=== PATIENT | female | born 1960 | race Caucasian/White ===

== ENCOUNTER 2021-10-29 09:02 | Inpatient (IN) | payer OTHER, SELFPAY ==
[2021-10-29] MEDS ORDERED: Lorazepam 2 MG/ML VIAL ONE (09:27)
[2021-10-29 09:38] LABS: #Eosinphils 0.2 10x3/uL (0.0-0.5); #Monocytes 0.5 10x3/uL (0.0-1.1); #Neutrophils 5.6 10x3/uL (1.5-8.4); %Basophils 0.3 % (0.0-2.0); %Eosinophils 2.7 % (0.0-6.0); %Lymphocytes 11.9 % (18.0-47.0); %Monocytes 7.1 % (0.0-10.0); %Neutrophils 77.6 % (40.0-75.0); Hemoglobin 14.4 g/dL (12.0-15.5); Mean Corpuscular HGB CONC 31.7 g/dL (32.0-36.0); Mean Corpuscular Hemoglobin 25.6 pg (27.0-33.0); Mean Corpuscular Volume 80.6 fl (81.6-98.3); Mean Platelet Volume 9.4 fl (7.4-10.4); Platelet Count 210 10x3/uL (150-450); RBC Distribution Width 15.6 % (11.5-14.5); Red Blood Cell (RBC) Count 5.63 10x6/uL (3.90-5.03); White Blood Cell (WBC) Count 7.2 10x3/uL (3.5-10.5)
[2021-10-29 09:54] LABS: ALT (SGPT) 16 U/L (8-55); AST (SGOT) 21 U/L (5-34); Albumin 4.2 g/dL (3.4-4.8); Alkaline Phosphatase 114 U/L (40-110); Anion Gap 11 mmol/L (10-20); BUN (Urea Nitrogen) 15 mg/dL (9.8-20.1); Bilirubin, Total 0.7 mg/dL (0.2-1.2); Calc. Creatinine Clearance 0 mL/min (70-130); Calcium 9.2 mg/dL (7.8-10.44); Carbon Dioxide 27 mmol/L (23-31); Chloride 106 mmol/L (98-107); Globulin 3.5 g/dL (2.4-3.5); Glucose 101 mg/dL (80-115); Potassium 4.2 mmol/L (3.5-5.1); Protein, Total 7.7 g/dL (5.8-8.1); Sodium 140 mmol/L (136-145)
[2021-10-29] MEDS ORDERED: Acetaminophen 650 MG Suppository PR PRN (11:27)
[2021-10-29] MEDS ORDERED: Acetaminophen 325 MG TAB PO PRN (11:27)
[2021-10-29] MEDS ORDERED: Enoxaparin Sodium 60 MG/0.6 ML SYRINGE ONE (12:33)
[2021-10-29] MEDS ORDERED: Enoxaparin Sodium 30 MG/0.3 ML SYRINGE ONE (12:33)
[2021-10-29 12:34] LABS: SARS-CoV-2 NAA Rapid Test DETECTED (NotDetected)
[2021-10-29 15:09] LABS: CKMB 1.9 ng/mL (0-6.6)
[2021-10-29] MEDS ORDERED: FLU VACC QS2021-22(6MOS UP)/PF 60 MCG/0.5 ML SYRINGE IM ONE (15:30)
[2021-10-29] MEDS ORDERED: Sodium Chloride 0.65% Nasal 44 ML BOT EA NARE PRN (17:41)
[2021-10-29] MEDS ORDERED: Oxymetazoline HCl 0.05% ( 15 ML ) NASAL PRN (20:11)
[2021-10-29] MEDS: Enoxaparin Sodium 100 MG/ML SYRINGE SC SCH (23:12)
[2021-10-30 05:00] LABS: #Eosinphils 0.3 10x3/uL (0.0-0.5); #Monocytes 0.6 10x3/uL (0.0-1.1); #Neutrophils 2.1 10x3/uL (1.5-8.4); %Basophils 0.5 % (0.0-2.0); %Eosinophils 7.1 % (0.0-6.0); %Monocytes 13.4 % (0.0-10.0); %Neutrophils 48.5 % (40.0-75.0); Hemoglobin 12.9 g/dL (12.0-15.5); Mean Corpuscular HGB CONC 31.3 g/dL (32.0-36.0); Mean Corpuscular Hemoglobin 25.4 pg (27.0-33.0); Mean Corpuscular Volume 81.1 fl (81.6-98.3); Platelet Count 209 10x3/uL (150-450); RBC Distribution Width 15.2 % (11.5-14.5); Red Blood Cell (RBC) Count 5.08 10x6/uL (3.90-5.03); White Blood Cell (WBC) Count 4.2 10x3/uL (3.5-10.5)
[2021-10-30 05:10] LABS: Anion Gap 11 mmol/L (10-20); BUN (Urea Nitrogen) 15 mg/dL (9.8-20.1); Calc. Creatinine Clearance 0 mL/min (70-130); Calcium 8.6 mg/dL (7.8-10.44); Carbon Dioxide 28 mmol/L (23-31); Chloride 107 mmol/L (98-107); Glucose 106 mg/dL (80-115); Potassium 4.8 mmol/L (3.5-5.1); Sodium 141 mmol/L (136-145)
[2021-10-30] MEDS: Enoxaparin Sodium 100 MG/ML SYRINGE SC SCH ×2 (10:57→23:39)
[2021-10-30] MEDS ORDERED: ALPRAZolam 0.25 MG TAB PO PRN (14:52)
[2021-10-31 04:41] LABS: #Eosinphils 0.4 10x3/uL (0.0-0.5); #Monocytes 0.5 10x3/uL (0.0-1.1); #Neutrophils 2.1 10x3/uL (1.5-8.4); %Basophils 0.7 % (0.0-2.0); %Lymphocytes 29.9 % (18.0-47.0); %Monocytes 11.8 % (0.0-10.0); %Neutrophils 48.1 % (40.0-75.0); Hemoglobin 13.4 g/dL (12.0-15.5); Mean Corpuscular HGB CONC 30.5 g/dL (32.0-36.0); Mean Corpuscular Hemoglobin 24.7 pg (27.0-33.0); Mean Platelet Volume 9.9 fl (7.4-10.4); Platelet Count 207 10x3/uL (150-450); RBC Distribution Width 15.1 % (11.5-14.5); Red Blood Cell (RBC) Count 5.42 10x6/uL (3.90-5.03); White Blood Cell (WBC) Count 4.4 10x3/uL (3.5-10.5)
[2021-10-31 04:52] LABS: Anion Gap 12 mmol/L (10-20); BUN (Urea Nitrogen) 13 mg/dL (9.8-20.1); Calc. Creatinine Clearance 112 mL/min (70-130); Calcium 8.8 mg/dL (7.8-10.44); Carbon Dioxide 27 mmol/L (23-31); Chloride 107 mmol/L (98-107); Glucose 103 mg/dL (80-115); Potassium 4.6 mmol/L (3.5-5.1); Sodium 141 mmol/L (136-145)
[2021-10-31 08:24] VITALS: TEMP 96.9
[2021-10-31] MEDS ORDERED: Apixaban 5 MG TAB PO SCH (09:00)
[2021-10-31 12:04] VITALS: BP 105/68
== END 2021-10-31 13:30 | disposition home or self-care (01) | DRG 175 ==
LOC: CSHERS 09:02 → CSHTELE 14:05
PROVIDERS: ADMIT Internal Medicine; ATTEND Internal Medicine
PROC: 8E0ZXY6 Isolation (ICD-10-PCS; principal; 2021-10-29)
DX: I26.99 Other pulmonary embolism without acute cor pulmonale (principal); U07.1 COVID-19; J12.82 Pneumonia due to coronavirus disease 2019; F41.9 Anxiety disorder, unspecified; J45.20 Mild intermittent asthma, uncomplicated; Z88.2 Allergy status to sulfonamides; Z91.048 Other nonmedicinal substance allergy status; Z90.89 Acquired absence of other organs; Z90.710 Acquired absence of both cervix and uterus
CPT/HCPCS: 36415; 71045; 71275; 80048; 80053; 82553; 83880; 84443; 84484; 85025; 85379; 93005; 93306; 94760; 96372; 96374; J1650; J2060; U0002

== ENCOUNTER 2021-11-01 20:30 | Emergency (ER) | payer OTHER, SELFPAY ==
[2021-11-01 21:22] LABS: #Eosinphils 0.6 10x3/uL (0.0-0.5); #Monocytes 0.6 10x3/uL (0.0-1.1); #Neutrophils 3.2 10x3/uL (1.5-8.4); %Basophils 0.7 % (0.0-2.0); %Neutrophils 55.1 % (40.0-75.0); Mean Corpuscular Hemoglobin 25.4 pg (27.0-33.0); Mean Corpuscular Volume 79.3 fl (81.6-98.3); Mean Platelet Volume 9.6 fl (7.4-10.4); Platelet Count 275 10x3/uL (150-450); RBC Distribution Width 14.9 % (11.5-14.5); Red Blood Cell (RBC) Count 5.52 10x6/uL (3.90-5.03); White Blood Cell (WBC) Count 5.8 10x3/uL (3.5-10.5)
[2021-11-01 21:38] LABS: ALT (SGPT) 82 U/L (8-55); AST (SGOT) 129 U/L (5-34); Alkaline Phosphatase 110 U/L (40-110); Anion Gap 12 mmol/L (10-20); BUN (Urea Nitrogen) 12 mg/dL (9.8-20.1); Bilirubin, Total 0.3 mg/dL (0.2-1.2); Calc. Creatinine Clearance 0 mL/min (70-130); Calcium 8.7 mg/dL (7.8-10.44); Carbon Dioxide 25 mmol/L (23-31); Chloride 108 mmol/L (98-107); Glucose 102 mg/dL (80-115); Potassium 4.4 mmol/L (3.5-5.1); Sodium 141 mmol/L (136-145)
== END 2021-11-01 23:00 | disposition home or self-care (01) ==
LOC: CSHERS 20:30
DX: I26.99 Other pulmonary embolism without acute cor pulmonale (principal); Z79.01 Long term (current) use of anticoagulants
CPT/HCPCS: 71045; 80053; 84484; 85025; 93005; 93010

== ENCOUNTER 2023-01-15 22:29 | Emergency (ER) | payer OTHER, SELFPAY ==
[2023-01-15 23:17] LABS: #Basophils 0.1 10x3/uL (0.0-0.2); #Eosinphils 0.4 10x3/uL (0.0-0.5); #Monocytes 0.7 10x3/uL (0.0-1.1); #Neutrophils 5.3 10x3/uL (1.5-8.4); %Basophils 0.7 % (0.0-2.0); %Lymphocytes 10.4 % (18.0-47.0); %Monocytes 10.1 % (0.0-10.0); %Neutrophils 72.4 % (40.0-75.0); Hemoglobin 12.9 g/dL (12.0-15.5); Mean Corpuscular HGB CONC 31.9 g/dL (32.0-36.0); Mean Corpuscular Hemoglobin 24.9 pg (27.0-33.0); Mean Corpuscular Volume 78.2 fl (81.6-98.3); Mean Platelet Volume 8.7 fl (7.4-10.4); Platelet Count 306 10x3/uL (150-450); RBC Distribution Width 14.2 % (11.5-14.5); Red Blood Cell (RBC) Count 5.18 10x6/uL (3.90-5.03); White Blood Cell (WBC) Count 7.3 10x3/uL (3.5-10.5)
[2023-01-15 23:29] LABS: ALT (SGPT) 11 U/L (8-55); AST (SGOT) 16 U/L (5-34); Albumin 3.7 g/dL (3.4-4.8); Alkaline Phosphatase 93 U/L (40-110); Anion Gap 16 mmol/L (10-20); BUN (Urea Nitrogen) 11 mg/dL (9.8-20.1); Bilirubin, Total 0.4 mg/dL (0.2-1.2); Calc. Creatinine Clearance 0 mL/min (70-130); Calcium 9.2 mg/dL (7.8-10.44); Carbon Dioxide 23 mmol/L (23-31); Chloride 103 mmol/L (98-107); Estimated GFR 76; Globulin 3.6 g/dL (2.4-3.5); Glucose 99 mg/dL (80-115); Protein, Total 7.3 g/dL (5.8-8.1); Sodium 138 mmol/L (136-145)
== END 2023-01-16 00:19 | disposition home or self-care (01) ==
LOC: CSHERS 22:29
DX: R05.9 Cough, unspecified (principal); R53.1 Weakness
CPT/HCPCS: 71045; 80053; 83880; 84443; 84484; 85025; 93005

== ENCOUNTER 2023-01-23 20:12 | Emergency (ER) | payer SELFPAY | END 2023-01-23 21:07 | disposition home or self-care (01) | LOC: CSHERS 20:12 | DX: Z20.3 Contact with and (suspected) exposure to rabies (principal) | CPT/HCPCS: 99283 ==

== ENCOUNTER 2023-10-27 16:24 | Emergency (ER) | payer SELFPAY ==
[2023-10-27] MEDS ORDERED: Boostrix 0.5 ML (Tdap) VIAL (>/=7 yrs of age) ONE (17:01)
[2023-10-27] MEDS ORDERED: Lidocaine 1% (PF) 30 ML VIAL ONE (17:01)
[2023-10-27] MEDS ORDERED: Bacitracin 1 PK ONE (18:29)
== END 2023-10-27 18:33 | disposition home or self-care (01) ==
LOC: CSHERS 16:24
DX: S61.412A Laceration without foreign body of left hand, initial encounter (principal); Z23 Encounter for immunization; W01.10XA Fall on same level from slipping, tripping and stumbling with subsequent striking against unspecified object, initial encounter
CPT/HCPCS: 12001; 90471; 90715; J2001

== ENCOUNTER 2023-11-22 00:58 | Emergency (ER) | payer SELFPAY | END 2023-11-22 01:25 | disposition home or self-care (01) | LOC: CSHERS 00:58 | DX: B02.9 Zoster without complications (principal) | CPT/HCPCS: 99282 ==

== ENCOUNTER 2024-08-09 16:02 | Emergency (ER) | payer SELFPAY ==
[~2024-08-09 16:02] MED LIST: Iopamidol 370 76% 100 ML VIAL ONE
[2024-08-09 17:55] LABS: #Basophils 0.05 10x3/uL (0.0-0.2); #Eosinophils 0.33 10x3/uL (0.0-0.5); #Monocytes 0.58 10x3/uL (0.0-1.1); #Neutrophils 4.52 10x3/uL (1.5-8.4); %Basophils 0.8 % (0.0-2.0); %Eosinophils 5.2 % (0.0-6.0); %Lymphocytes 13.7 % (18.0-47.0); %Monocytes 9.1 % (0.0-10.0); %Neutrophils 70.9 % (40.0-75.0); Hemoglobin 12.8 g/dL (12.0-15.5); Mean Corpuscular HGB CONC 30.5 g/dL (32.0-36.0); Mean Corpuscular Hemoglobin 24.9 pg (27.0-33.0); Mean Corpuscular Volume 81.7 fL (81.6-98.3); Mean Platelet Volume 9.3 fL (7.4-10.4); Platelet Count 307 10x3/uL (150-450); Red Blood Cell (RBC) Count 5.14 10x6/uL (3.90-5.03); White Blood Cell (WBC) Count 6.4 10x3/uL (3.5-10.5)
[2024-08-09 18:08] LABS: ALT (SGPT) 15 U/L (8-55); AST (SGOT) 17 U/L (5-34); Albumin 3.8 g/dL (3.4-4.8); Alkaline Phosphatase 105 U/L (40-110); Anion Gap 14 mmol/L (10-20); BUN (Urea Nitrogen) 17 mg/dL (9.8-20.1); Bilirubin, Total 0.2 mg/dL (0.2-1.2); Calc. Creatinine Clearance 0 mL/min (70-130); Calcium 9.4 mg/dL (7.8-10.44); Carbon Dioxide 23 mmol/L (23-31); Chloride 109 mmol/L (98-107); Estimated GFR 69; Globulin 3.2 g/dL (2.4-3.5); Glucose 101 mg/dL (80-115); Potassium 4.3 mmol/L (3.5-5.1); Sodium 142 mmol/L (136-145)
[2024-08-09 18:14] LABS: Troponin I Less than 0.010 ng/mL (< 0.028)
== END 2024-08-09 20:07 | disposition home or self-care (01) ==
LOC: CSHERS 16:02
DX: H53.8 Other visual disturbances (principal); Z55.0 Illiteracy and low-level literacy
CPT/HCPCS: 36415; 70496; 70498; 80053; 84484; 85025; 93005; Q9967